=== PATIENT | female | born 1950 | race African-American/Black ===

== ENCOUNTER 2024-03-14 05:35 | Emergency (ER) | payer SELFPAY ==
[~2024-03-14] VITALS: Ht 167.6 cm; Wt 41.0 kg
[2024-03-14 06:10] VITALS: BP 49/12
[2024-03-14] MEDS: NOREPINEPHRINE 8MG/250ML PMX 250 ML IV ONE (06:10)
[2024-03-14 06:39] VITALS: PULSE 46; RESP 19
== END 2024-03-14 08:26 ==
LOC: ER 05:35
DX: I46.9 Cardiac arrest, cause unspecified (principal)
CPT/HCPCS: 82962; 92950; 99291; J3490; Z7610 ×8; 94002